=== PATIENT | female | born 1995 | race Caucasian/White ===

== ENCOUNTER → 2022-07-30 11:20 | Outpatient (BNVA) | payer MEDICAID, SELFPAY | PROVIDERS: Visit Provider Obstetrics & Gynecology | DX: Z34.80 Encounter for supervision of other normal pregnancy, unspecified trimester (principal) | CPT/HCPCS: 82950; 84315 ==

== ENCOUNTER → 2022-09-01 11:24 | Outpatient (BNVA) | payer MEDICAID, SELFPAY | PROVIDERS: Visit Provider Obstetrics & Gynecology | DX: Z34.00 Encounter for supervision of normal first pregnancy, unspecified trimester (principal) | CPT/HCPCS: 85025; 87086 ==

== ENCOUNTER → 2022-09-11 13:46 | Outpatient (BNVA) | payer MEDICAID, SELFPAY | PROVIDERS: Visit Provider Obstetrics & Gynecology | DX: Z34.00 Encounter for supervision of normal first pregnancy, unspecified trimester (principal) | CPT/HCPCS: 81000; 87081; 87086 ==

== ENCOUNTER → 2022-09-19 14:00 | Outpatient (BNVA) | payer MEDICAID, SELFPAY | PROVIDERS: Visit Provider Obstetrics & Gynecology | DX: Z34.00 Encounter for supervision of normal first pregnancy, unspecified trimester (principal) | CPT/HCPCS: 81000; 87086 ==

== ENCOUNTER 2022-10-05 06:54 | Outpatient (CLI) | payer MEDICAID, SELFPAY ==
[2022-10-05] VITALS (9 sets, daily range): BP systolic 113–134; BP diastolic 74–92; PULSE 77–101; RESP 18; BMI 28.3
[2022-10-05 08:40] LABS: Basophils % 0.4 %; Eosinophils # 0.2 10^3/uL (0.0-0.8); Eosinophils % 1.4 %; Hematocrit 40.1 % (37.0-47.0); Hemoglobin 13.9 g/dL (11.5-15.3); Lymphocytes # 2.3 10^3/uL (0.8-4.8); Lymphocytes % 21.8 %; Mean Corpuscular HGB Conc 34.7 g/dL (30.0-36.0); Mean Corpuscular Hemoglobin 31.8 pg (28.0-34.0); Mean Corpuscular Volume 91.8 fl (81-99); Mean Platelet Volume 10.4 fL (7.4-10.4); Monocytes # 0.7 10^3/uL (0.2-0.9); Monocytes % 6.2 %; Neutrophils # 7.43 10^3/uL (1.8-7.7); Neutrophils % 69.6 %; Nucleated Red Blood Cells % 0 %; Platelet Count 243 10^3/cmm (130-400); Red Blood Count 4.37 10^6/uL (4.1-5.3); Red Cell Distribution Width 12.3 % (12.1-15.1); White Blood Count 10.7 10^3/uL (4.0-10.0)
[2022-10-05 08:58] LABS: Alanine Aminotransferase 11 U/L (0-33); Albumin Level 3.4 g/dL (3.5-5.2); Alkaline Phosphatase 169 U/L (35-105); Anion Gap 14.9 (5-19); Aspartate Amino Transferase 18 U/L (0-32); Blood Urea Nitrogen 7 mg/dL (6-20); Calcium 9.5 mg/dL (8.5-10.5); Carbon Dioxide 20 mmol/L (22-29); Chloride 103 mmol/L (98-107); Glomerular Filtration Rate 192.9 mL/min (90-130); Glucose 74 mg/dL (65-115); Osmolality Calculated 275 mOsm/kg (285-295); Potassium 3.9 mmol/L (3.5-5.1); Sodium 134 mmol/L (136-145); Total Bilirubin 0.2 mg/dL (0.15-1.2); Total Protein 6.4 g/dL (6.6-8.7); Uric Acid 5.3 mg/dL (2.4-5.7)
[2022-10-05 09:20] LABS: Urine Creatinine 113 mg/dL (28-217)
[2022-10-05 09:21] LABS: Urine Appearance Hazy (CLEAR); Urine Color Yellow (Yellow)
[2022-10-05 09:22] LABS: Add Urine Microscopic? YES; Bacteria Urine 1+ /hpf; Bilirubin Urine Neg (Negative); Blood Urine 3+ (Negative); Glucose Urine UA Norm (Normal); Ketones Urine Negative (Negative); Leukocyte Esterase Urine Negative (Negative); Nitrate Urine Negative (Negative); Protein Urine Trace (Negative); RBC Urine 0-4 /hpf (0-2); Specific Gravity, Urine 1.015 (1.005-1.030); Squamous Epithelial Cell Urine 0-4 /hpf (0-5); Urobilinogen Urine Norm (Negative); WBC Urine 0-4 /hpf (0-5); pH Urine 7 (5-7)
[2022-10-05 09:23] LABS: UPRO/UCREAT Ratio 0.36 mg/mg CR; Urine Protein Random 41 mg/dL
== END 2022-10-05 10:40 | disposition home or self-care (01) ==
LOC: OPOB 06:55 → OBGYN 07:04
PROVIDERS: Visit Provider Obstetrics & Gynecology
DX: O26.899 Other specified pregnancy related conditions, unspecified trimester (principal); Z3A.00 Weeks of gestation of pregnancy not specified; R10.9 Unspecified abdominal pain
CPT/HCPCS: 36415; 59025; 80053; 81001; 82570; 84156; 84550; 85025; 99211

== ENCOUNTER 2022-10-05 21:49 | Inpatient (IN) | payer MEDICAID, SELFPAY ==
[2022-10-05] VITALS (47 sets, daily range): BP systolic 99–155; BP diastolic 57–94; PULSE 56–101; RESP 16; TEMP 35.8–36.3; O2SAT 98–100; BMI 28.4
[2022-10-05] MEDS: lactated ringers 1,000 ML 999 ML IV ×2 (18:25→19:26)
[2022-10-05] MEDS: ampicillin 2,000 MG in sodium chloride 0.9% (plus) 50 ML 100 MG IV (18:25)
--- NOTE | 2022-10-05 19:48 | P.ANESASSM_ITS ---
Pre-Anesthetic Assessment Height/Weight: Height 1.65 m Weight 77.564 kg Temp Pulse Resp BP Pulse Ox O2 Del Method 97.3 F L 80 16 113/64 98 10/05/22 18:00 10/05/22 19:44 10/05/22 18:08 10/05/22 19:44 10/05/22 19:44 10/05/22 18:16 Preop Diagnosis: IUP Labor Epidural Familial anesthetic complications: None Last intake: CLEARS CURRENT 1700- DINNER Social No alcohol and No tobacco Exam alert, oriented x 3 and clear to auscultation bilaterally Airway Submandibular: within normal limits Cervical ROM: within normal limits Mallampati: Class II Dentition: full History/ROS No significant history except as noted Pulmonary Asthma CV/HEM None reported None reported Hepatic None reported GI Gastroesophageal Reflux Disease Metabolic None reported Musc/skel None reported Neuropsych None reported Anesthetic Plan ASA status: 2 Anesthesia: Regional (specify below) Other: Labor Epidural Medications/Allergies Home Medications Medication Instructions Recorded Confirmed Last Taken Type prenat.vits,marty,qrc-ptvi-[id number] 1 tab PO DAILY 07/30/22 10/05/22 10/04/22 20:00 History Allergies Allergy/AdvReac Type Severity Reaction Status Date / Time No Known Allergies Allergy Unverified 10/03/22 09:30 Current Medications Generic Name Dose Route Start Last Admin Trade Name Freq PRN Reason Stop Dose Admin Lactated Ringer's 1,000 mls @ 999 mls/hr 10/05/22 18:07 10/05/22 19:26 Lactated Ringers IV 999 mls/hr .Q1H1M PRN Administration Per L&D Rescitation Protocol Ropivacaine 200 mg in 100 mls @ 13 mls/hr 10/05/22 18:15 10/05/22 19:19 Naropin Premix EPIDURAL 13 mls/hr .Q7H42M CINTHYA Administration Lactated Ringer's 1,000 mls @ 999 mls/hr 10/05/22 18:09 10/05/22 19:27 Lactated Ringers IV Infused .Q1H1M PRN Infusion See label comments [facility] Anesthesia Medical History No pertinent past medical history Surgical History No pertinent past surgical history Family History Mother Hypertension Heart disease Stroke Denies family history of Colon cancer Ovarian cancer Diabetes Hypercholesteremia Breast cancer Uterine cancer Thyroid disease Social History Smoking and tobacco status: never smoked Female Reproductive History : 1 Data Anesthesia Cardiac Studies: No Data to Display Anesthesia Procedures Epidural Time Out Performed: Yes Consent: from patient, risks and benefits reviewed and patient agrees to proceed Lumbar Level: L3-L4 Epidural position: sitting Epidural procedure: sterile prep of area, 1% lidocaine to numb the area, negative for paresthesia passed, test dose given, 1.5% xylocaine 1:200k epi, placed PCEA, no systemic response, sterile dressing applied, L.U.D. no apparent complications and 0.2% Ropiavacaine @ mls/hr (13ML/HR) Additional Comments: DONALD at 6.5 on second attempt catheter threaded to 12cm. 100 mcg Fentanyl given via epidural with remaining lidocaine and sterile saline.
[2022-10-05] MEDS: calcium carbonate 500 mg Chew Tablet 1000 MG PO ×2 (20:03→23:57)
[2022-10-05] MEDS: ampicillin 1,000 MG in sodium chloride 0.9% (plus) 50 ML 100 MG IV (21:54)
[2022-10-05] MEDS: alum-mag-hydroxide-sime 30 mL UDC PO (21:54)
[2022-10-05] MEDS: ondansetron 2 mg/ML SDV 2 mL 4 MG IVP (23:04)
[2022-10-05] MEDS: dextrose 5%-lactated ringers 1,000 ML 125 ML IV (23:05)
[2022-10-06] VITALS (21 sets, daily range): BP systolic 101–140; BP diastolic 59–87; PULSE 60–171; RESP 16–18; TEMP 36.6–36.9; O2SAT 97–100
[2022-10-06] MEDS: oxytocin 30 UNIT/500 ML BAG 600 UNIT IV (00:56)
--- NOTE | 2022-10-06 01:14 | PM.OPHPUD ---
Labor & Delivery H&P Update Date of Procedure: October 06, 2022 Date H&P Performed: 10/03/22 H&P update information: I have reviewed H&P completed within last 30 days, I have examined patient prior to procedure and Changes to prior documentation as noted here Changes to previous documentation: The patient's cervix has changed to 3 cm/90/-2. she is ania regularly and is very uncomfortable. She will be admitted for active labor. Admission Diagnosis: @ 39 weeks 5 days Preop diagnosis: IUP
--- NOTE | 2022-10-06 01:16 | PM.DELIVERY ---
Delivery Note: Date of delivery: October 06, 2022 Pre-delivery diagnoses: iup@ 39 weeks, 5 days Post-delivery diagnoses: same- delivered Procedure: Delivering Physician: harrison Estimated blood loss (mL): 100 Findings: term female in the KEDAR presentation Pre-Delivery Course: The patient was admitted in active labor. She received an epidural for pain management. She began pushing and had SROM of clear fluid. Delivery: The patient had complete cervical dilation and began to push. The head delivered in the KEDAR position over an intact perineum under epidural anesthesia. The shoulders and body delivered atraumatically. The baby was placed onto the mother's abdomen. The nose and mouth were bulb suctioned. The cord was clamped and cut. The placenta delivered spontaneously. It was inspected and found to be intact. Inspection of the perineum revealed bilateral periurethral tears which were repaired with 3-0 Vicryl in a running pattern. There was excellent hemostasis post repair. Estimated blood loss 100 mL. Apgars on baby were 9 at 1 minute and 9 at 5 minutes. Weight of baby is 6 pounds 13 ounces. Mother and baby were stable post delivery. History History History 1 Term 0 Miscarriages/Ectopic Living Children Coding Level of Care Code Acute [employer] [facility]g Giovanni
[2022-10-06] MEDS: benzocaine-menthol 78 gm Canister 1 SPRAY TOPICAL (04:36)
[2022-10-06] MEDS: lanolin oint 7 gm 1 APPLIC TOPICAL (04:36)
[2022-10-06] MEDS: docusate sodium 100 mg Capsule PO ×2 (08:51→18:23)
[2022-10-06] MEDS: ibuprofen 800 mg tablet PO ×3 (08:51→20:27)
[2022-10-06] MEDS: prenatal vitamin Capsule 1 CAP PO (08:51)
--- NOTE | 2022-10-06 09:28 | ANE.PACU2 ---
Inpatient post-anesthesia follow up: Airway intact: Yes Vital signs: Temperature 98.2 F Pulse Rate 68 Respiratory Rate 17 Blood Pressure 114/76 Pulse Oximetry 98 Oxygen Delivery Me thod Room Air Oxygen Flow Rate Fraction of Inspir ed Oxygen Hydration adequate: Yes Nausea and vomiting: No Pain level: 2 Mental status: Baseline
[2022-10-06 13:30] LABS: Hematocrit 32.6 % (37.0-47.0); Hemoglobin 10.9 g/dL (11.5-15.3); Mean Corpuscular HGB Conc 33.4 g/dL (30.0-36.0); Mean Corpuscular Hemoglobin 31.1 pg (28.0-34.0); Mean Corpuscular Volume 93.1 fl (81-99); Mean Platelet Volume 10.7 fL (7.4-10.4); Platelet Count 184 10^3/cmm (130-400); Red Cell Distribution Width 12.5 % (12.1-15.1); White Blood Count 15.3 10^3/uL (4.0-10.0)
--- NOTE | 2022-10-07 04:12 | PM.DCS ---
Discharge Providers Date of Admission: 10/05/22 21:49 Date of Discharge: October 07, 2022 Attending Provider at Admission: Sushila Mckeon MD Attending Provider at Discharge: Sushila Mckeon MD Reason for Visit Reason for Visit: Contractions Hospital Course Hospital Course The patient was admitted in active labor. she had spontaneous delivery of a term . She did well and requested discharge on day #1. Physical Exam Narrative: The patient is doing well this morning. No concerns. Const: COMMON NORMALS: no acute distress, average body habitus, patient oriented x3, no limitations, healthy appearing, alert and well nourished GENERAL APPEARANCE: cooperative, comfortable, well kempt and well developed ORIENTATION/CONSCIOUSNESS: Yes awake, Yes oriented to person, Yes oriented to place and Yes oriented to time Resp: COMMON NORMALS: normal respiratory effort EFFORT & INSPECTION: Yes able to speak in complete sentences GI: COMMON NORMALS: Soft to palpation and non-tender PALPATION: Yes Soft to palpation Extremity: COMMON NORMALS: no calf tenderness Neuro: COMMON NORMALS: patient oriented x3 SENSORIUM/ORIENTATION: Yes alert, Yes oriented to person, Yes oriented to place and Yes oriented to time Psych: APPEARANCE: Yes well kempt Urinary Catheter Management: Almeida Latex: Cath Placed During This Visit: yes, but has since been removed by the nurse Reason for Continuing Indwelling Catheter: Decision to DC Catheter Urinary Catheter Date of Insertion: 10/05/22 Urinary Catheter Time of Insertion: 20:21 Date Urinary Catheter Removed: 10/06/22 Time Urinary Catheter Discontinued: 00:23 Discharge Data Studies Completed and Pending Laboratory Results WBC 15.3 10^3/uL (4.0-10.0) H 10/06/22 13:20 RBC 3.50 10^6/uL (4.1-5.3) L 10/06/22 13:20 Hgb 10.9 g/dL (11.5-15.3) L 10/06/22 13:20 Hct 32.6 % (37.0-47.0) L 10/06/22 13:20 MCV 93.1 fl (81-99) 10/06/22 13:20 MCH 31.1 pg (28.0-34.0) 10/06/22 13:20 MCHC 33.4 g/dL (30.0-36.0) 10/06/22 13:20 RDW 12.5 % (12.1-15.1) 10/06/22 13:20 Plt Count 184 10^3/cmm (130-400) 10/06/22 13:20 MPV 10.7 fL (7.4-10.4) H 10/06/22 13:20 Vitals Last Vital Signs Temp 98.0 F 10/06/22 22:15 Pulse 70 10/06/22 22:15 Resp 17 10/06/22 22:15 BP 107/67 10/06/22 22:15 Pulse Ox 99 10/06/22 22:15 O2 Del Method 10/06/22 22:15 Discharge Plan Discharge Patient Disposition: Home Condition: Stable Prescriptions: Continued prenat.vits,marty,jmb-rtpe-beijo Tablet 1 tab PO DAILY Discharge Orders: Discharge Order (Routine); Ordered 10/07/22 Ordered By: Sushila Mckeon Patient Instructions: Opioid Safety Discharge Attestations Time Spent in Discharge Care*: less than 30 min Quality Metrics Clinical Quality Measures [ No reported AMI, CVA or VTE this stay] Coding Level of Care Code Acute Chg FW DC note
[2022-10-07] MEDS: HYDROcodone-acetaminophen 5-325 mg Tablet PO (04:33)
[2022-10-07 04:36] VITALS: BP 118/77; PULSE 70; RESP 18; TEMP 36.6; O2SAT 99
[2022-10-07] MEDS: prenatal vitamin Capsule 1 CAP PO (09:11)
[2022-10-07] MEDS: docusate sodium 100 mg Capsule PO (09:11)
[2022-10-07] MEDS: ibuprofen 800 mg tablet PO (09:11)
[2022-10-07 09:30] VITALS: BP 123/83; PULSE 83; TEMP 36.9; O2SAT 99
== END 2022-10-07 09:45 | disposition home or self-care (01) | DRG 807 ==
LOC: OBGYN 21:53 → OPOB 10-06 15:03
PROVIDERS: Admitting Provider Obstetrics & Gynecology; Visit Provider Obstetrics & Gynecology
DX: O71.82 Other specified trauma to perineum and vulva (principal); Z37.0 Single live birth; Z3A.39 39 weeks gestation of pregnancy
CPT/HCPCS: 36415; 51702; 59025; 59409; 85027; 98960; 99211; J0290; J2405; J2590; J2795; J3010; J7120; J7121

== ENCOUNTER → 2025-08-03 13:38 | Outpatient (BNVA) | payer BC, SELFPAY | PROVIDERS: PCP Family Medicine; Visit Provider Family Medicine | DX: D50.9 Iron deficiency anemia, unspecified (principal); Z13.6 Encounter for screening for cardiovascular disorders | CPT/HCPCS: 80053; 82728; 83550; 84443; 85025 ==